=== PATIENT | male | born 1935 | race Caucasian/White ===

== ENCOUNTER 2017-10-21 09:01 | Day surgery (SDC) | payer OTHER ==
[~2017-10-21 09:01] MED LIST: CIPRO500 MG PO; TRAM1TAB98 PO
== END 2017-10-21 13:00 | disposition home or self-care (01) ==
LOC: AMB-ENDOS 09:01
DX: D12.3 Benign neoplasm of transverse colon (principal); K57.30 Diverticulosis of large intestine without perforation or abscess without bleeding